=== PATIENT | female | born 1985 | race Caucasian/White ===

== ENCOUNTER → 2017-12-15 16:56 | Observation (INO) ==
[2017-12-15 10:43] LABS: Bilirubin,Urine Negative (Negative); Blood,Urine Negative (Negative); Clarity,Urine Cloudy (Clear); Color,Urine Yellow (Yellow); Glucose,Urine (UA) Normal (Normal); Ketones,Urine Negative (Negative); Leukocyte Esterase,Urine Negative (Negative); Nitrite,Urine Negative (Negative); Protein,Urine Negative (Neg-Trace); Specific Gravity,Urine 1.012 (1.010-1.025); Urobilinogen,Urine Normal (Normal)
[2017-12-15 10:45] LABS: Bacteria,Urine None Seen per hpf (None-Few); Hyaline Casts,Urine None Seen per lpf (None-Few); RBC,Urine 0-3 per hpf (0-3); Squamous Epithelial Cell,Urine Many per lpf (None-Few); WBC,Urine 0-3 per hpf (0-3)
[2017-12-15 11:23] LABS: Amphetamine Screen,Urine Negative ng/mL (Cutoff=1000); Barbiturate Screen,Urine Negative ng/mL (Cutoff=200); Benzodiazepines Screen,Urine Negative ng/mL (Cutoff=200); Cannabinoid Screen,Urine Negative ng/mL (Cutoff = 50); Cocaine Screen,Urine Negative ng/mL (Cutoff= 300); Opiate Screen,Urine Negative ng/mL (Cutoff=300); Phencyclidine Screen,Urine Negative ng/mL (Cutoff=25)
--- NOTE | 2017-12-15 16:27 | OB/GYN Progress Note ---
Date of Encounter: 12/15/17 Time of Encounter: 16:23 - Assessment and Plan (1) 35 weeks gestation of Current Visit: Yes Status: Acute NST reactive, FHR baseline 130bpm. Discharge home with precautions. (2) Polyhydramnios Current Visit: Yes Status: Acute ABA 35. Follow-up in office as scheduled for NST & US. Qualifiers: Fetus number: single or unspecified fetus Trimester: third trimester Qualified Code(s): O40.3XX0 - Polyhydramnios, third trimester, not applicable or unspecified (3) BMI 31.0-31.9,adult Current Visit: Yes Status: Acute (4) False labor before 37 completed weeks of gestation Current Visit: Yes Status: Acute SVE unchanged x2 from office. Discharge home with strict return precautions. Plan discussed with Dr. Luis. Qualifiers: Trimester: third trimester Qualified Code(s): O47.03 - False labor before 37 completed weeks of gestation, third trimester Subjective - Subjective Principal diagnosis: Contractions Interval history: 32 y/o at 35w5d that was sent from the office with contractions on the NST and 4cm on exam. complicated with polyhydramnios; ABA 35. Denies VB or LOF. Reports good FM. Antepartum ROS: movement normal, other, no loss of fluid, no vaginal bleeding Objective - Vital Signs Vital Signs: Intake and Output 12/15/17 12/15/17 12/15/17 07:59 15:59 23:59 Other: Weight 101.2 kg Patient Weight 12/15/17 23:59 Weight 101.2 kg - Exam FHR: auscultation normal FHR comments: NST reactive, FHR baseline 130bpm. Auscultation: bilateral: normal Abdomen: Present: normal appearance, soft, gravid Cervical dilation: 4 Cervix effacement: 80 station: Ballotable - Labs Labs: Abnormal lab results Urine Clarity Cloudy (Clear) A 12/15/17 10:35 Ur Squamous Epith Cells Many per lpf (None-Few) H 12/15/17 10:35
[~2017-12-15 16:56] MED LIST: *HR* FentaNYL (PF) 100 MCG/2 ML VIAL EP ONE; *HR* FentaNYL (PF) 100 MCG/2 ML VIAL ONE; *HR* Ropivacaine/PF 0.2% 20 ML VIAL EP ONE; *HR* Ropivacaine/PF 0.2% 20 ML VIAL ONE; Epidural Premix (fent/bupiv) 110 ML EP SCH; Lidocaine -MPF 2% 5 ML VIAL ONE; Penicillin G Potassium 2,500,000 UNIT in 0.9 % Sodium Chloride 100 ML IVPB SCH; Penicillin G Potassium 5,000,000 UNIT in 0.9 % Sodium Chloride Mini Bag 100 ML IVPB ONE; Ringers Solution, Lactated 1,000 ML IVC ONE; Ringers Solution, Lactated 1,000 ML ONE
== END | disposition home or self-care (01) ==
LOC: 1NENULAB
PROVIDERS: ADMIT Registered Nurse; ATTEND Registered Nurse

== ENCOUNTER 2017-12-24 08:00 | Inpatient (IN) ==
--- NOTE | 2017-12-24 08:51 | History & Physical Report ---
Date of Encounter: 12/24/17 Time of Encounter: 08:49 24 Hour HP Update - Instructions Instructions: If the History and Physical is less than 30 days old and was completed prior to A.M. admission and or procedure and has NOT been updated on calendar day of procedure please complete this update prior to performing procedure. - Update Patient reports changes in Medical Condition: No Changes in examination, assessment, or condition: No Changes in Medication: No Preop tests/diagnostics Reviewed: Yes Surgery Remains Indicated: Yes Consent for Planned Operative Procedure(s) Verified: Yes - Pre-Operative Checklist Preoperative Checklist Indicated: No Prophylactic Antibiotic Ordered: No Is VTE Prophylaxis Indicated?: NO
[2017-12-24] MEDS ORDERED: *HR* Nalbuphine 10 MG/ML AMPUL IVP PRN (09:21)
[2017-12-24] MEDS ORDERED: Famotidine 20 MG/2 ML VIAL IVP PRN (09:21)
[2017-12-24] MEDS ORDERED: Metoclopramide 10 MG/2 ML VIAL IVP PRN (09:21)
[2017-12-24] MEDS ORDERED: Naloxone 0.4 MG/ML INJ IVP PRN (09:21)
[2017-12-24] MEDS ORDERED: Oxytocin 20 units/ LR 1000 mL 20 UNIT/1,000 ML BAG IVC SCH ×2 (09:30→20:25)
[2017-12-24] MEDS ORDERED: D5% in 0.45% NACL 1,000 ML IVC ONE (09:38)
[2017-12-24] MEDS ORDERED: Oxytocin 20 units/ LR 1000 mL 20 UNIT/1,000 ML BAG IVC ONE (09:38)
[2017-12-24 09:41] LABS: Basophils % 0.3 %; Eosinophils # 0.2 K/mcL (0.0-0.6); Eosinophils % 1.7 %; Hematocrit 35.6 % (35.3-44.9); Hemoglobin 11.8 g/dL (11.5-15.4); Lymphocytes # 1.8 K/mcL (0.6-4.6); Lymphocytes % 14.3 %; Mean Corpuscular HGB Conc 33.1 g/dL (31.6-35.5); Mean Corpuscular Hemoglobin 30.7 pg (28.0-33.3); Mean Corpuscular Volume 92.7 fL (83.0-100.0); Mean Platelet Volume 10.6 fL (9.4-12.4); Monocytes # 1.2 K/mcL (0.0-1.3); Monocytes % 9.3 %; Platelet Count 237 K/mcL (140-400); Red Blood Count 3.84 M/mcL (3.82-4.97); Red Cell Distribution Width 13.4 % (11.5-14.5); Segmented Neutrophils % 72.4 %
[2017-12-24 10:12] LABS: Amphetamine Screen,Urine Negative ng/mL (Cutoff=1000); Barbiturate Screen,Urine Negative ng/mL (Cutoff=200); Benzodiazepines Screen,Urine Negative ng/mL (Cutoff=200); Cannabinoid Screen,Urine Negative ng/mL (Cutoff = 50); Cocaine Screen,Urine Negative ng/mL (Cutoff= 300); Opiate Screen,Urine Negative ng/mL (Cutoff=300); Phencyclidine Screen,Urine Negative ng/mL (Cutoff=25)
[2017-12-24] MEDS: D5% in 0.45% NACL 1,000 ML IVC SCH ×2 (10:29→17:10)
[2017-12-24] MEDS ORDERED: Ringers Solution, Lactated 1,000 ML IVC ONE (16:11)
[2017-12-24] MEDS ORDERED: Bupivacaine-MPF 0.25% 10 ML VIAL EP ONE (16:34)
[2017-12-24] MEDS ORDERED: *HR* FentaNYL (PF) 100 MCG/2 ML VIAL EP ONE (16:34)
[2017-12-24] MEDS ORDERED: *HR* FentaNYL (PF) 100 MCG/2 ML VIAL ONE (16:35)
[2017-12-24] MEDS ORDERED: Bupivacaine-MPF 0.25% 10 ML VIAL ONE (16:36)
[2017-12-24] MEDS ORDERED: Lidocaine -MPF 2% 5 ML VIAL ONE (16:36)
[2017-12-24] MEDS ORDERED: Epidural Premix (fent/bupiv) 110 ML EP ONE (16:38)
[2017-12-24] MEDS ORDERED: Epidural Premix (fent/bupiv) 110 ML EP SCH (16:45)
--- NOTE | 2017-12-24 17:56 | OB Labor Progress Note ---
Date of Encounter: 12/24/17 Time of Encounter: 17:34 Labor Progress Note - Subjective Subjective: The patient is comfortable post epidural. - Vital Signs Vital Signs: Afebrile, vital signs stable - Cervix Cervix: 5/80/-1, vtx - Heart Tones Heart Tones: 110s, CAT 1 - [place]: Contractions every 2-3 minutes on external monitor at 10 milliunits of Pitocin - Interventions Interventions: 37 week IUP for induction of labor for polyhydramnios with unstable lie and moderate hydronephrosis. - Plan Plan: Amniotomy performed with large amount of clear fluid seen. IUPC placed without difficulty. Continue induction of labor. Anticipate vaginal delivery
--- NOTE | 2017-12-24 18:38 | Anesthesia Evaluation PreOp ---
Date of Encounter: 12/24/17 Time of Encounter: 16:38 - Past History Planned Operation: labor epidural Cardiac History: Denies any Significant Hx Pulmonary History: Denies Any Significant HX CORPORATE REAL ESTATE MANAGER History: Denies Any Significant HX Other Medical History: Denies Any Significant HX Anesthesia History: No Prior Anesthetic Complications, Past Anesthesia (lap kem, shoulder scope, colonoscopy, previous epidural X1. No problems with anesthesia, no FHAP.) : Yes Alcohol Use: none Drug use: none Medications and Allergies Vit Calc,Iron,Folic [ Vitamins] 1 tab PO DAILY 12/15/17 [History] Allergy/AdvReac Type Severity Reaction Status Date / Time propranolol [From Inderal LA] Allergy SHORTNESS Verified 12/15/17 10:12 OF BREATH - Meds/Allergy Pre-op Review Medications Reviewed: Yes Allergies Reviewed: Yes Beta Blockers on Current Med List: No Anesthesia Results - Labs 12/24/17 08:45 Anesthesia Exam 117/64, 84. Fhts 150s. Height: 5'7" Weight: 102kg NPO (# of Hours): >8 Pain Scale: 6 Pain Scale Used: Numeric (1 - 10) - HEENT Pupil (Motor): Pupils equal Mallampati: II Teeth: Normal Oral Opening: Greater than 3 - CORPORATE REAL ESTATE MANAGER LOC: Oriented CORPORATE REAL ESTATE MANAGER Motor: Normal RUE, Normal LUE, Normal RLE, Normal LLE, Normal Face [employer]PORATE REAL ESTATE MANAGER Sensory: Normal: RUE, LUE, RLE, LLE, Face - Cardiac Rhythm: Regular - Pulmonary Breath Sounds: bilateral Clear Respiratory Effort: Symmetrical Anesthesia Assess/Plan ASA Score: 2 Level of consciousness: Cooperative, Oriented, Tranquil Anesthetic Plan: Epidural Monitoring Plan: Standard Monitors
--- NOTE | 2017-12-24 18:43 | Anesthesia Procedures ---
Addendum entered and electronically signed by Ana Seth CRNA 12/24/17 21:24: Infant Delivery Date: 12/24/17 Infant Delivery Time: 18:46 Original Note: Date of Encounter: 12/24/17 Time of Encounter: 16:43 Procedures: Anesthesia - Epidural/Spinal Patient ID/Chart reviewed: Yes Patient examined: Yes OB Eval: Gestational age: 39 OB Eval: : 2 OB Eval: Hx Para: 1 OB Eval: Dilated at (cm): 4 OB Eval: Contractions: Non-stressed pattern Consent Obtained: Yes Supplemental Oxygen: None/Room Air Site Prep: Aseptic Technique, Sterile prep and drape, Povidone-Iodine 1% Patient position: upright Local Anesthetic: Lidocaine 1% Amount of Local Anesthetic used: 3 Touhy Needle Gauge: 19 Touhy Needle Depth (cm): 7 Catheter Depth at Skin (cm): 18 Test Dose (1.5% Lido + Epi): Volume given (mls): 3 Test Dose Result: Negative Loading Dose: 0.25% Marcaine (mls): 8 Loading Dose: Fentanyl (mcg): 100 Loading Dose Administered: Thru Catheter Infusion Med: 0.125% Bupivacaine w/ 2 mcg/ml Fentanyl Infusion Rate (mls/hr): [address]: Tegaderm, Tape Interspace Used: L3-L4 Loss of Resistance (JUSTINE): Yes Blood: No CSF: No Paresthesia: No Vitals + FHT's: Vital Signs Time 1643 1701 1705 1710 BP 117/64 112/74 116/69 114/63 Pulse 72 70 69 68 FHTs 120 120 120 120
--- NOTE | 2017-12-24 19:22 | OB/GYN Procedure Note ---
Delivery - Delivery Date: 12/24/17 Provider: Julia Arthur Intrapartum events: polyhydramnios Delivery induction: oxytocin Delivery augmentation: rupture of membranes Delivery monitor: external FHT, external uterine, internal uterine Anesthesia: epidural Quantitated Blood Loss: 200 - (s) Infant A Infant Delivery Date: 12/24/17 Delivery Time: 18:46 Presentation: vertex Position: SATURNINO Route of delivery: Gender: Male Viability: Viable Pounds: 8 Ounces: 2 at 1 minute: 8 at 5 mins: 9 Shoulder Dystocia: not encountered Specimens collected: cord blood Placenta: spontaneous, uterine exploration Cord: 3 umbilical vessels - Repair Episiotomy: none Laceration Description: Periurethral, Perineal - 2nd Degree - Complications Delivery complications: none Delivery comments: The patient was complete and pushing with epidural anesthesia with a spontaneous vaginal delivery in the SATURNINO position of a vigorous male weighing 8 lbs.2 oz. with Apgars of 8 at 1 minute and 9 at 5 [address] was placed on the maternal abdomen. The cord was clamped and cut after pulsations ceased. Cord blood obtained. The placenta was delivered spontaneous and intact. The uterus was explored and there were no clots or retained placenta. Superficial midline periurethral laceration was not hemostatic and was repaired with 4-0 Monocryl in a running nonlocking fashion. There was a second-degree midline perineal laceration was repaired with 3-0 Monocryl in the usual fashion. Estimated blood loss 200 mL, complications none. There was 1500 mL of amniotic fluid after the head was delivered. - Disposition Mom disposition: stable in LDR disposition: stable in LDR
[2017-12-24] MEDS ORDERED: Sennosides 8.6 MG TABLET PO PRN (20:25)
[2017-12-24] MEDS ORDERED: *HR* HYDROcodone/Acet 5/325 mg TABLET PO PRN (20:25)
[2017-12-24] MEDS ORDERED: Rho Immune Globulin 1,500 UNIT SYRINGE IM PRN (20:25)
[2017-12-24] MEDS ORDERED: Measles/Mumps/Rubella Vacc 0.5 ML VIAL SQ PRN (20:25)
[2017-12-24] MEDS ORDERED: Acetaminophen 325 MG TABLET PO PRN (20:25)
[2017-12-25] MEDS: Ibuprofen 600 MG TABLET PO SCH ×3 (04:34→22:09)
[2017-12-25 04:56] LABS: Basophils # 0.1 K/mcL (0.0-0.2); Basophils % 0.5 %; Eosinophils # 0.2 K/mcL (0.0-0.6); Eosinophils % 1.1 %; Hematocrit 34.3 % (35.3-44.9); Hemoglobin 11.7 g/dL (11.5-15.4); Immature Granulocytes % 0.9 % (0-4); Lymphocytes # 1.9 K/mcL (0.6-4.6); Lymphocytes % 12.6 %; Mean Corpuscular HGB Conc 34.1 g/dL (31.6-35.5); Mean Corpuscular Hemoglobin 30.5 pg (28.0-33.3); Mean Corpuscular Volume 89.6 fL (83.0-100.0); Mean Platelet Volume 10.3 fL (9.4-12.4); Monocytes # 1.6 K/mcL (0.0-1.3); Monocytes % 10.3 %; Neutrophils # 11.3 K/mcL (1.6-8.9); Platelet Count 217 K/mcL (140-400); Red Blood Count 3.83 M/mcL (3.82-4.97); Red Cell Distribution Width 13.4 % (11.5-14.5); Segmented Neutrophils % 74.6 %
--- NOTE | 2017-12-25 08:55 | OB/GYN Progress Note ---
Date of Encounter: 12/25/17 Time of Encounter: 08:54 - Assessment and Plan (1) Vaginal delivery Current Visit: Yes Status: Acute Continue routine care Anticipate discharge home tomorrow Subjective - Subjective Principal diagnosis: Vaginal delivery Interval history: S/P Vaginal delivery day 1 Pain well controlled Lochia light without clots VSS Tolerating regular diet Passing flatus and urinating without difficulty Discharge home tomorrow Patient reports: appetite normal, voiding normally, pain well controlled, ambulating normally [place]: doing well, nursing well Objective - Latest Vital Signs Latest vital signs: Vital Signs Temp Pulse Resp BP Pulse Ox 12/25/17 08:37 98.4 F 88 16 105/64 97 12/25/17 00:58 98.3 F 85 16 102/53 96 12/24/17 23:30 97.5 F L 75 15 114/70 97 12/24/17 21:43 98.1 F 66 16 109/67 97 Intake and Output 12/24/17 12/25/17 12/25/17 23:59 07:59 15:59 Intake Total 600 / 600 Output Total 1600 / 1600 700 / 700 Balance 600 / 600 -1600 / -1600 -700 / -700 Intake: IV Fluids 600 / 600 D5% And 0.45% Nacl 1000 Ml Bag 600 / 600 1,000 ML @ 125 mls/hr IVC .Q8H [facility] Rx#:[id number] Output: Urine 1600 / 1600 700 / 700 Other: Weight 95.9 kg - Exam Lungs: bilateral: normal Chest: Normal S1, Normal S2 Extremities: Present: normal Abdomen: Present: normal appearance, soft, gravid Uterus: Present: normal, firm Uterus Position: At Umbilicus, Midline - Labs Labs: Laboratory Results - last 24 hr 12/24/17 12/24/17 12/25/17 08:45 08:45 04:28 WBC 12.4 H 15.1 H RBC 3.84 3.83 Hgb 11.8 11.7 Hct 35.6 34.3 L MCV 92.7 89.6 MCH 30.7 30.5 MCHC 33.1 34.1 RDW 13.4 13.4 Plt Count 237 217 MPV 10.6 10.3 Immature Gran % 2.0 0.9 Seg Neutrophils % 72.4 74.6 Lymphocytes % 14.3 12.6 Monocytes % 9.3 10.3 Eosinophils % 1.7 1.1 Basophils % 0.3 0.5 Neutrophils # 9.0 H 11.3 H Lymphocytes # 1.8 1.9 Monocytes # 1.2 1.6 H Eosinophils # 0.2 0.2 Basophils # 0.0 0.1 Urine Opiates Screen Negative Ur Barbiturates Screen Negative Ur Phencyclidine Scrn Negative Ur Amphetamines Screen Negative U Benzodiazepines Scrn Negative Urine Cocaine Screen Negative U Marijuana (THC) Screen Negative Ur Drug Screen Interp See Below
[2017-12-25] MEDS: Prenatal Vit/FA 1 EACH TABLET PO SCH (11:15)
[2017-12-26] MEDS: Ibuprofen 600 MG TABLET PO SCH (08:28)
[2017-12-26] MEDS: Prenatal Vit/FA 1 EACH TABLET PO SCH (08:29)
[2017-12-26 08:31] VITALS: BP 104/68
--- NOTE | 2017-12-26 08:57 | Discharge Summary ---
Date of Encounter: 12/26/17 Time of Encounter: 08:54 - Discharge Diagnosis (1) Vaginal delivery Priority: Primary Status: Acute Comments: Continue routine care discharge home-Guest. Infant in SCN follow up with Dr. Arthur in 4-6 weeks (2) Breast feeding status of mother Priority: Secondary Status: Acute Comments: support prn - Discharge Medications Prescriptions: Ibuprofen [Motrin] 600 mg PO Q6HR #60 tablet Home Medications: Ibuprofen [Motrin] 600 mg PO Q6HR #60 tablet 12/26/17 [Rx] Vit/FA 1 each PO DAILY tablet 12/26/17 [Rx] Allergies/Adverse Reactions: Allergy/AdvReac Type Severity Reaction Status Date / Time propranolol [From Inderal LA] Allergy SHORTNESS Verified 12/15/17 10:12 OF BREATH Data Procedures and tests throughout hospitalization: Laboratory Tests 12/24/17 12/24/17 12/25/17 08:45 08:45 04:28 WBC 12.4 H 15.1 H RBC 3.84 3.83 Hgb 11.8 11.7 Hct 35.6 34.3 L MCV 92.7 89.6 MCH 30.7 30.5 MCHC 33.1 34.1 RDW 13.4 13.4 Plt Count 237 217 MPV 10.6 10.3 Immature Gran % 2.0 0.9 Seg Neutrophils % 72.4 74.6 Lymphocytes % 14.3 12.6 Monocytes % 9.3 10.3 Eosinophils % 1.7 1.1 Basophils % 0.3 0.5 Neutrophils # 9.0 H 11.3 H Lymphocytes # 1.8 1.9 Monocytes # 1.2 1.6 H Eosinophils # 0.2 0.2 Basophils # 0.0 0.1 Urine Opiates Screen Negative Ur Barbiturates Screen Negative Ur Phencyclidine Scrn Negative Ur Amphetamines Screen Negative U Benzodiazepines Scrn Negative Urine Cocaine Screen Negative U Marijuana (THC) Screen Negative Ur Drug Screen Interp See Below Date of admission: 12/24/17 08:11 Primary care physician: Nata Alfaro Consults: 12/24/17 20:25 Consult to Welfare Adviser [CONS] Routine Comment: Vaginal delivery, consult needed Discharging clinician: Mima Golden Anticipated date of discharge: 12/26/17 - Patient Status Disposition: Home, Self-Care Condition: Good Functional capacity at discharge: independent ambulation - Discharge Instructions Follow Up With: Jo Vides DO [Primary Care Provider] - Julia Arthur MD [Partnered Physician] - - Diet and Activity Activity: increase activity as tolerated Diet: regular diet Hospital Course Reason for admission: induction of labor Delivery: Episiotomy: none Laceration: 2nd degree Other procedures: none complications: none Discharge diagnosis: IUP at term delivered baby: male (breast feeding) Time Attestation: Total time spent providing and/or coordinating discharge services: Time Spent: Less than 30 minutes Exam - Constitutional Vitals: Temp Pulse Resp BP Pulse Ox 97.8 F 74 16 104/68 97 12/26/17 08:30 12/26/17 08:30 12/26/17 08:39 12/26/17 08:30 12/26/17 08:30 General appearance IM: A&O X 3, pleasant, answers questions appropriately - Respiratory Respiratory exam: Present: CTAB - Cardiovascular Cardiovascular exam IM: Present: RRR, +S1, +S2 - GI/Abdominal GI/Abdominal exam IM: normal bowel sounds - Uterine Tone: Firm Uterus Position: At Umbilicus, Midline - Extremities Exam Extremities exam IM: Present: full ROM, normal capillary refill, normal inspection - Neurological Exam Neurological exam: alert, oriented X3, reflexes normal
== END 2017-12-26 12:11 | disposition home or self-care (01) | DRG 807 ==
LOC: 1NENULAB 08:11 → 1NENUOBS 21:52
PROVIDERS: ADMIT Obstetrics & Gynecology; ATTEND Obstetrics & Gynecology